=== PATIENT | male | born 1985 | race Two or more races ===

== ENCOUNTER 2024-02-07 18:09 | Inpatient (IN) | payer OTHER ==
[~2024-02-07] VITALS: Ht 167.6 cm; Wt 76.8 kg
[2024-02-07 18:55] LABS: BASOPHILS % (AUTO) 0.5 % (0.0-2.0); EOSINOPHILS % (AUTO) 1.9 % (1.0-6.0); HEMATOCRIT 43.8 % (41-53); LYMPHOCYTES # (AUTO) 2.4 K/uL (1.0-4.8); LYMPHOCYTES % (AUTO) 31.1 % (22.0-44.0); MEAN CORPUSCULAR HEMOGLOBIN 27.9 pg (26.0-34.0); MEAN CORPUSCULAR HGB CONC 34.3 G/dL (31.0-37.0); MEAN CORPUSCULAR VOLUME 81 fL (80-100); MONOCYTES # (AUTO) 0.4 K/uL (0.1-1.0); MONOCYTES % (AUTO) 5.5 % (2.0-9.0); NEUTROPHILS # (AUTO) 4.7 K/uL (1.8-7.7); PLATELET COUNT (AUTO) 178 K/uL (150-450); RED BLOOD CELL COUNT(AUTO) 5.39 MIL/uL (4.50-5.90); WHITE BLOOD COUNT (AUTO) 7.6 K/uL (4.5-11.0)
[2024-02-07 18:58] LABS: ANION GAP 9 mmol/L (8-16); CALCIUM, TOTAL 9.4 mg/dL (8.8-10.5); CARBON DIOXIDE 30 mmol/L (22-29); CHLORIDE 101 mmol/L (98-107); CREATININE 0.75 mg/dL (0.60-1.30); GLOMERULAR FILTR. RATE CALC > 60 mL/min (>60); GLUCOSE,RANDOM 110 mg/dL (70-110); POTASSIUM 3.9 mmol/L (3.5-5.1); SODIUM SERUM 140 mmol/L (136-145); UREA NITROGEN, BLOOD 7 mg/dL (7-18)
[2024-02-07 19:05] LABS: ALANINE AMINOTRANSFERASE 41 U/L (12-78); ALBUMIN 4.4 g/dL (3.4-5.0); ALKALINE PHOSPHATASE 103 U/L (46-116); ASPARTATE AMINOTRANSFERASE 22 U/L (15-37); BILIRUBIN,TOTAL 0.6 mg/dL (0.1-1.0); TOTAL PROTEIN, SERUM 8.2 g/dL (6.4-8.2)
[2024-02-07] MEDS ORDERED: OxyCODONE HCL/ACETAMINOPHEN 5-325 MG TABLET PO PRN (20:00)
[2024-02-07] MEDS ORDERED: ACETAMINOPHEN 325 MG TABLET PO PRN (20:00)
[2024-02-07] MEDS ORDERED: MAGNESIUM HYDROXIDE SUSPENSION 30 ML UDCUP PO PRN (20:00)
[2024-02-07] MEDS: KETOROLAC TROMETHAMINE 30 MG/ML VIAL IVP ONE (20:27)
[2024-02-07] MEDS: CIPROFLOXACIN 400 MG/D5% WATER 200 ML IV ONE (20:27)
[2024-02-07] MEDS: NEOMYCIN/POLYMYXIN B/HYDROCORT 10 ML OTIC SOLUTION AD ONE (20:50)
[2024-02-07] MEDS: DOCUSATE SODIUM 100 MG CAPSULE PO SCH (21:00)
[2024-02-07] MEDS ORDERED: ACET-2247 PO (21:15)
[2024-02-07] MEDS ORDERED: CIPOTIC AD (21:15)
[2024-02-07] MEDS ORDERED: METF-1211 PO (21:15)
[2024-02-07] MEDS ORDERED: IOHEXOL 350 MG/ML 100 ML VIAL ONE (21:28)
[2024-02-07] MEDS ORDERED: SODIUM CHLORIDE 0.9% 100 ML ONE (21:28)
[2024-02-07 22:00] VITALS: BP 128/79; PULSE 74; RESP 18; TEMP 98.2; O2SAT 97
[2024-02-08] MEDS ORDERED: INFLUENZA VIRUS VACCINE TVS (6MO+) 2024-25/PF 45 MCG/0.5 ML SYRINGE IM. ONE (02:15)
[2024-02-08 05:01] VITALS: BP 105/65; PULSE 64; RESP 18; TEMP 97.9; O2SAT 99
[2024-02-08] MEDS ORDERED: SODIUM CHLORIDE 0.9% 500 ML IV ONE (05:06)
[2024-02-08] MEDS: CIPROFLOXACIN 400 MG/D5% WATER 200 ML IV SCH (05:52)
[2024-02-08 06:52] LABS: APPEARANCE,URINE CLEAR (CLEAR); BILIRUBIN,URINE NEGATIVE (NEGATIVE); COLOR,URINE LIGHT YELLOW (YELLOW); GLUCOSE, URINE (UA) NEGATIVE (NEGATIVE); KETONES,URINE NEGATIVE (NEGATIVE); LEUKOCYTE ESTERASE ,URINE NEGATIVE (NEGATIVE); NITRATE,URINE NEGATIVE (NEGATIVE); OCCULT BLOOD,URINE NEGATIVE (NEGATIVE); PH,URINE 6.5 (5.0-8.0); PROTEIN,URINE TRACE mg/dL (NEGATIVE); UROBILINOGEN,URINE <=1.0 mg/dL (<=1.0)
[2024-02-08 08:01] VITALS: BP 114/65; PULSE 58; RESP 18; TEMP 98.2; O2SAT 98
[2024-02-08] MEDS: FAMOTIDINE 20 MG TABLET PO SCH (08:14)
[2024-02-08 16:50] VITALS: BP 110/68; PULSE 62; RESP 18; TEMP 97.9; O2SAT 96
[2024-02-08 19:53] VITALS: BP 125/73; PULSE 81; RESP 18; TEMP 98.3; O2SAT 93
[2024-02-09 04:43] VITALS: BP 114/64; PULSE 80; RESP 18; TEMP 98.1; O2SAT 96
[2024-02-09 08:01] VITALS: BP 102/69; PULSE 63; RESP 18; TEMP 98.3; O2SAT 98
[2024-02-09 08:18] LABS: BASOPHILS % (AUTO) 0.6 % (0.0-2.0); EOSINOPHILS % (AUTO) 2.1 % (1.0-6.0); HEMATOCRIT 42.3 % (41-53); HEMOGLOBIN 14.2 g/dL (13.5-17.5); LYMPHOCYTES # (AUTO) 2.4 K/uL (1.0-4.8); LYMPHOCYTES % (AUTO) 33.3 % (22.0-44.0); MEAN CORPUSCULAR HEMOGLOBIN 27.5 pg (26.0-34.0); MEAN CORPUSCULAR HGB CONC 33.6 G/dL (31.0-37.0); MEAN CORPUSCULAR VOLUME 82 fL (80-100); MONOCYTES # (AUTO) 0.4 K/uL (0.1-1.0); MONOCYTES % (AUTO) 5.8 % (2.0-9.0); NEUTROPHILS # (AUTO) 4.2 K/uL (1.8-7.7); NEUTROPHILS % (AUTO) 58.2 % (40.0-70.0); PLATELET COUNT (AUTO) 157 K/uL (150-450); RED BLOOD CELL COUNT(AUTO) 5.17 MIL/uL (4.50-5.90); RED CELL DISTRIBUTION WIDTH 14.3 % (11.5-14.5); WHITE BLOOD COUNT (AUTO) 7.1 K/uL (4.5-11.0)
[2024-02-09 08:33] LABS: ANION GAP 5 mmol/L (8-16); CALCIUM, TOTAL 9.2 mg/dL (8.8-10.5); CARBON DIOXIDE 29 mmol/L (22-29); CHLORIDE 105 mmol/L (98-107); CREATININE 0.84 mg/dL (0.60-1.30); GLOMERULAR FILTR. RATE CALC > 60 mL/min (>60); GLUCOSE,RANDOM 111 mg/dL (70-110); SODIUM SERUM 139 mmol/L (136-145); UREA NITROGEN, BLOOD 11 mg/dL (7-18)
[2024-02-09 16:57] VITALS: BP 124/74; PULSE 66; RESP 17; TEMP 98.1; O2SAT 98
[2024-02-09 19:49] VITALS: BP 118/74; PULSE 87; RESP 18; TEMP 98.5; O2SAT 97
[2024-02-09 20:07] VITALS: BP 120/85; PULSE 84; RESP 18; TEMP 98.3; O2SAT 96
[2024-02-10 05:03] VITALS: BP 115/76; PULSE 69; RESP 18; TEMP 97.6; O2SAT 96
[2024-02-10 08:26] VITALS: BP 120/73; PULSE 74; RESP 18; TEMP 98.1; O2SAT 97
[2024-02-10] MEDS ORDERED: CIPR500T10 PO (13:17)
[2024-02-10 16:07] VITALS: BP 135/74; PULSE 79; RESP 18; TEMP 98.2; O2SAT 94
== END 2024-02-10 18:00 | DRG 156 ==
LOC: EMS 18:09 → EDH 19:51 → 6S 21:55
PROVIDERS: ADMIT Internal Medicine; ATTEND Internal Medicine
DX: H60.91 Unspecified otitis externa, right ear (principal); E11.9 Type 2 diabetes mellitus without complications
CPT/HCPCS: 70481; 80048; 80053; 81003; 85025; 99285; J0744; J1885; J7040; J7050